=== PATIENT | female | born 1980 | race Caucasian/White ===

== ENCOUNTER 2017-12-05 22:58 | Emergency (ER) | payer BC ==
[~2017-12-05] VITALS: Ht 175.3 cm; Wt 109.9 kg
[~2017-12-05 22:58] MED LIST: EFFEXOR37.5 MG PO
[2017-12-06 00:06] LABS: HEMATOCRIT 36.7 % (36.0-46.0); HEMOGLOBIN 12.1 G/DL (11.9-15.5); MCH 27.9 PG (29.0-34.0); MCV 84.8 FL (83-99); RBC DIS.WIDTH-CV 15.1 % (11.8-14.6); RBC DIS.WIDTH-SD 46.4 % (39-53); RED BLOOD COUNT 4.33 M/uL (3.80-5.20); WHITE BLOOD COUNT 5.5 K/uL (4.1-10.2)
[2017-12-06 00:16] LABS: CHLORIDE 107 mEq/L (99-109); POTASSIUM 4.4 mEq/L (3.7-5.4); SODIUM 137 mEq/L (136-147)
[2017-12-06 00:18] LABS: GLUCOSE 109 mg/dL (70-99)
[2017-12-06 00:21] LABS: SERUM ETHYL ALCOHOL < 10 mg/dL
[2017-12-06 00:22] LABS: CREATININE 0.8 mg/dL (0.6-1.3); GFR ESTIMATE (CALCULATED) > 59 mL/min/
[2017-12-06 00:23] LABS: UREA NITROGEN (BUN) 16 mg/dL (9-23)
[2017-12-06 00:31] LABS: QUANTITATIVE HCG < 4.0 MIU/ML
[2017-12-06 00:57] LABS: PLAT.SUFFICIENCY ADEQUATE; PLATELET COUNT 268 K/uL (156-360)
[2017-12-06 02:37] LABS: APPEARANCE CLEAR ((CLEAR)); BILIRUBIN NEGATIVE; BLOOD MODERATE; COLOR STRAW ((YELLOW)); GLUCOSE (STRIP) NEGATIVE; KETONES NEGATIVE; LEUKOCYTES NEGATIVE; NITRITE NEGATIVE; PROTEIN (STRIP) NEGATIVE; UROBILINOGEN 0.2 MG/DL (0.2-1.0)
[2017-12-06 02:39] LABS: BACTERIA NONE SEEN /HPF; EPITHELIAL CELLS RARE /HPF; MUCUS TRACE /LPF; RED BLOOD CELLS 0-5 /HPF (0-5); UCUL ADDED? NO; WHITE BLOOD CELLS 0-5 /HPF (0-5)
[2017-12-06 02:46] LABS: AMPHETAMINE NEGATIVE (500 ng/mL); BARBITURATES NEGATIVE (200 ng/mL); BENZODIAZEPINES NEGATIVE (150 ng/mL); BUPRENORPHINE NEGATIVE (10 ng/mL); COCAINE NEGATIVE (150 ng/mL); METHADONE NEGATIVE (200 ng/mL); METHAMPHETAMINE NEGATIVE (500 ng/mL); OPIATES (MORPHINE) NEGATIVE (100 ng/mL); OXYCODONE NEGATIVE (100 ng/mL); PHENCYCLIDINE NEGATIVE (25 ng/mL); PROPOXYPHENE NEGATIVE (300 ng/mL); THC CANNABINOIDS NEGATIVE (50 ng/mL); TRICYCLIC ANTIDEPRESSANTS NEGATIVE (300 ng/mL)
[2017-12-06] MEDS ORDERED: XANAX0.25 MG PO (03:52)
[2017-12-06 04:05] VITALS: BP 124/77
== END 2017-12-06 04:42 | disposition home or self-care (01) ==
LOC: EME 22:58
PROVIDERS: Emergency Medicine
DX: F33.1 Major depressive disorder, recurrent, moderate (principal); F41.9 Anxiety disorder, unspecified; Z88.0 Allergy status to penicillin
CPT/HCPCS: 80048; 81003; 84702; 85027; 90839; 99281; 99283; G0480